=== PATIENT | male | born 2000 | race Caucasian/White ===

== ENCOUNTER 2023-12-26 13:58 | Inpatient (IN) | payer OTHER ==
[~2023-12-26] VITALS: Ht 165.1 cm; Wt 71.6 kg
[2023-12-26] MEDS ORDERED: ACETAMINOPHEN 325 MG TAB PO PRN (18:15)
[2023-12-26] MEDS ORDERED: ONDANSETRON HCL 4 MG/2 ML VIAL IV PRN (18:15)
[2023-12-26] MEDS ORDERED: DOCUSATE SOD 100 MG CAP PO PRN (18:15)
[2023-12-26 18:33] VITALS: BP 94/56; PULSE 60; RESP 100; RESP 15; TEMP 98.6; O2SAT 100
[2023-12-26 19:10] LABS: Basophils # (auto) 0 10 ^3/uL (0-0.2); Basophils % (auto) 0.3 % (0.0-2.0); Eosinophils # (auto) 0.1 10 ^3/uL (0-0.8); Eosinophils % (auto) 0.9 % (0.0-7.0); Hematocrit 41.9 % (41.0-53.0); Hemoglobin 14.4 g/dL (13.5-17.5); Lymphocytes # (auto) 1.2 10 ^3/uL (0.4-5.4); Lymphocytes % (auto) 12.5 % (10.0-50.0); Mean Corpuscular Hemoglobin 29.8 pg (28.0-32.0); Mean Corpuscular Hgb Conc. 34.3 g/dL (32.0-36.0); Monocytes # (auto) 0.9 10 ^3/uL (0-1.3); Monocytes % (auto) 9.2 % (0.0-12.0); Neutrophils # (auto) 7.5 10 ^3/uL (1.6-8.6); Neutrophils % (auto) 77.1 % (37.0-80.0); Platelet Count (auto) 113 10^3/uL (140-450); Red Blood Cells 4.82 10^6/uL (4.5-5.90); Red Cell Distribution Width 13.3 % (11.8-14.3); White Blood Cell 9.7 10^3/uL (4.4-10.8)
[2023-12-26 19:29] LABS: Alanine Aminotransferase 23 U/L (7-40); Albumin 3.9 g/dL (3.2-4.8); Alkaline Phosphatase 67 U/L (46-116); Anion Gap 4 (5-15); Aspartate Aminotransferase 34 U/L (13-40); BUN/Creatinine Ratio 10.4 (10.0-20.0); Bilirubin, Total 0.7 mg/dL (0.2-1.0); Blood Urea Nitrogen 12 mg/dL (9-23); Calcium 9.1 mg/dL (8.7-10.4); Carbon Dioxide 29 mmol/L (20-30); Chloride 109 mmol/L (98-107); Glucose 105 mg/dL (74-106); Potassium 3.7 mmol/L (3.5-5.1); Sodium 142 mmol/L (136-145); Total Protein 6.6 g/dL (5.7-8.2)
[2023-12-26] MEDS: LACTATED RINGER'S 1,000 ML IV SCH (19:57)
[2023-12-26 20:00] VITALS: PULSE 68; RESP 18; O2SAT 99
[2023-12-26 21:00] VITALS: BP 92/46; PULSE 68; RESP 18; TEMP 98.6; O2SAT 99
[2023-12-26] MEDS: SODIUM CHLOR 0.9% PF (SALINE LOCK) 10ML VIAL/SYR IV SCH (21:07)
[2023-12-26] MEDS: HYDROcodone-ACET 5/325MG TAB PO PRN (21:09)
[2023-12-27] VITALS (7 sets, daily range): BP systolic 90–104; BP diastolic 50–62; PULSE 73–82; RESP 16–20; TEMP 97.6–98.6; O2SAT 90–100
[2023-12-27 02:34] LABS: Urine Bacteria None Seen /hpf (None Seen)
[2023-12-27 02:47] LABS: Urine Blood Negative /uL (Negative); Urine Clarity Clear (Clear); Urine Color Yellow (Yellow); Urine Protein, UAD TRACE (Negative); Urine Specific Gravity 1.036 (1.001-1.035); Urine Urobilinogen Normal (Negative); Urine WBC 2 /hpf (0 - 3); Urine pH 6.5 (5.0-9.0)
[2023-12-27] MEDS: ENOXAPARIN SOD 40 MG/0.4 ML SYRINGE SC SCH (08:46)
[2023-12-27] MEDS: HYDROmorphone HCL 2 MG/ML VL/or syr IV PRN (08:47)
[2023-12-27 12:54] LABS: COVID19 ANTIGEN SOFIA FIA NEGATIVE (NEGATIVE); Rapid Influenza A Negative (Negative); Rapid Influenza B Negative (Negative)
[2023-12-27] MEDS: IOHEXOL 350 MG/ML 100ML IJ ONE (14:19)
[2023-12-28] VITALS (7 sets, daily range): BP systolic 99–110; BP diastolic 45–160; PULSE 60–80; RESP 16–20; TEMP 97.6–98.9; O2SAT 86–100
[2023-12-28 09:29] LABS: Basophils # (auto) 0 10 ^3/uL (0-0.2); Basophils % (auto) 0.2 % (0.0-2.0); Eosinophils # (auto) 0.1 10 ^3/uL (0-0.8); Eosinophils % (auto) 1.8 % (0.0-7.0); Hematocrit 39.8 % (41.0-53.0); Hemoglobin 13.7 g/dL (13.5-17.5); Lymphocytes # (auto) 1.4 10 ^3/uL (0.4-5.4); Lymphocytes % (auto) 21.4 % (10.0-50.0); Mean Corpuscular Hemoglobin 30.3 pg (28.0-32.0); Mean Corpuscular Hgb Conc. 34.5 g/dL (32.0-36.0); Mean Corpuscular Volume 87.7 fL (80.0-100.0); Monocytes # (auto) 0.6 10 ^3/uL (0-1.3); Monocytes % (auto) 8.7 % (0.0-12.0); Neutrophils # (auto) 4.4 10 ^3/uL (1.6-8.6); Neutrophils % (auto) 67.9 % (37.0-80.0); Platelet Count (auto) 171 10^3/uL (140-450); Red Blood Cells 4.53 10^6/uL (4.5-5.90); Red Cell Distribution Width 13.7 % (11.8-14.3); White Blood Cell 6.5 10^3/uL (4.4-10.8)
[2023-12-28 10:20] LABS: Chloride 107 mmol/L (98-107); Potassium 4.5 mmol/L (3.5-5.1); Sodium 139 mmol/L (136-145)
[2023-12-28 10:21] LABS: Anion Gap 4 (5-15); Calcium 9.8 mg/dL (8.7-10.4); Carbon Dioxide 28 mmol/L (20-30)
[2023-12-28 10:26] LABS: Blood Urea Nitrogen 7 mg/dL (9-23); Glucose 86 mg/dL (74-106)
[2023-12-28] MEDS: levoFLOXacin 500MG 100 ML IV ONE (17:50)
[2023-12-29] VITALS (8 sets, daily range): BP systolic 97–110; BP diastolic 56–68; PULSE 57–78; RESP 16–19; TEMP 97.5–98.1; O2SAT 96–99
[2023-12-29 05:30] LABS: Chloride 106 mmol/L (98-107); Potassium 4.4 mmol/L (3.5-5.1); Sodium 139 mmol/L (136-145)
[2023-12-29 05:31] LABS: Anion Gap 5 (5-15); Calcium 9.6 mg/dL (8.7-10.4); Carbon Dioxide 28 mmol/L (20-30)
[2023-12-29 05:36] LABS: BUN/Creatinine Ratio 5.7 (10.0-20.0); Blood Urea Nitrogen 6 mg/dL (9-23); Glucose 90 mg/dL (74-106)
[2023-12-29 05:45] LABS: Basophils # (auto) 0 10 ^3/uL (0-0.2); Basophils % (auto) 0.6 % (0.0-2.0); Eosinophils # (auto) 0.2 10 ^3/uL (0-0.8); Eosinophils % (auto) 4.3 % (0.0-7.0); Hematocrit 40.9 % (41.0-53.0); Hemoglobin 14.1 g/dL (13.5-17.5); Lymphocytes # (auto) 1.4 10 ^3/uL (0.4-5.4); Lymphocytes % (auto) 31.6 % (10.0-50.0); Mean Corpuscular Hemoglobin 30.1 pg (28.0-32.0); Mean Corpuscular Hgb Conc. 34.5 g/dL (32.0-36.0); Mean Corpuscular Volume 87.2 fL (80.0-100.0); Monocytes # (auto) 0.4 10 ^3/uL (0-1.3); Monocytes % (auto) 9.8 % (0.0-12.0); Neutrophils # (auto) 2.3 10 ^3/uL (1.6-8.6); Neutrophils % (auto) 53.7 % (37.0-80.0); Platelet Count (auto) 182 10^3/uL (140-450); Red Blood Cells 4.69 10^6/uL (4.5-5.90); Red Cell Distribution Width 13.4 % (11.8-14.3); White Blood Cell 4.3 10^3/uL (4.4-10.8)
[2023-12-29] MEDS: levoFLOXacin 500MG 100 ML IV SCH (17:46)
[2023-12-30] VITALS (8 sets, daily range): BP systolic 99–115; BP diastolic 57–63; PULSE 55–80; RESP 16–20; TEMP 97.5–98.7; O2SAT 96–100
[2023-12-31] VITALS (8 sets, daily range): BP systolic 93–109; BP diastolic 56–64; PULSE 62–87; RESP 15–22; TEMP 97.5–98.9; O2SAT 96–100
[2024-01-01 01:00] VITALS: BP 101/64; PULSE 71; RESP 15; TEMP 97.8; O2SAT 96
[2024-01-01 05:00] VITALS: BP 105/62; PULSE 82; RESP 18; TEMP 98; O2SAT 64
[2024-01-01 07:53] VITALS: PULSE 79; RESP 15; O2SAT 97
[2024-01-01 08:53] VITALS: BP 94/60; PULSE 79; RESP 18; TEMP 98.4; O2SAT 95
[2024-01-01] MEDS ORDERED: LEVO500T91 PO (10:39)
[2024-01-01 11:32] VITALS: BP 120/63; PULSE 75; RESP 20; TEMP 98.3; O2SAT 98
[2024-01-01 16:06] LABS: QuantiFERON-TB Gold Plus Negative (Negative)
[2024-01-03 12:06] LABS: Aspergillus flavus Negative (Neg:<1:1); Aspergillus fumigatus Negative (Neg:<1:1); Aspergillus niger Negative (Neg:<1:1); Blastomyces Antibody DID Negative (Neg:<1:1)
[2024-01-04 04:05] LABS: Coccidioides CF Antibody <1:2 (<1:2)
== END 2024-01-01 13:00 | disposition home or self-care (01) | DRG 179 ==
LOC: EDBD 17:51 → OVERFLOW 17:51 → EAST 18:00
PROVIDERS: ADMIT Internal Medicine; ATTEND Internal Medicine Geriatric Medicine
DX: J15.69 Pneumonia due to other Gram-negative bacteria (principal); J15.9 Unspecified bacterial pneumonia; F17.200 Nicotine dependence, unspecified, uncomplicated
CPT/HCPCS: 36415; 71045; 71275; 80048; 80053; 81001; 83605; 84484; 85025; 86606; 86612; 86635; 86698; 86703; 87070; 87081; 87205; 87426; 87804; 93005; G0378; J1956